=== PATIENT | female | born 1960 | race Caucasian/White ===

== ENCOUNTER 2016-10-20 | Inpatient (IN) | payer OTHER ==
--- NOTE | ~2016-10-20 | HP ---
Unit #: [id number] #: [id number] Patient: BHARATH LEIGH [id number] [place] [address] [id number] MR#: [id number] NAME: BHARATH LEIGH ROOM: P258 Age: 55 Sex: F Admission Date: 10/20/2016 : 1960 Attending Physician: Ole Carrasco M.D. Admitting Physician: Ole Carrasco M.D. Primary Care Physician: Primary Care Physician No HISTORY AND PHYSICAL HISTORY OF PRESENT ILLNESS Bharath is a 55 year old admitted to 2 [facility] with depression and verbalizing wanting to hurt herself. PAST MEDICAL HISTORY 1. Hyperlipidemia. 2. Seizure disorder. 3. COPD. PAST SURGICAL HISTORY 1. Appendectomy. 2. Breast augmentation. 3. Tubal ligation. 4. Hysterectomy. 5. Bilateral carpal tunnel release. ALLERGIES Penicillin. SOCIAL HISTORY Smokes 1 pack per day. Denies alcohol and illicit drug use. FAMILY HISTORY Medically noncontributory. REVIEW OF SYSTEMS CONSTITUTIONAL: No fever or chills. HEENT: Denies any sore throat, ear pain or runny nose. CARDIOVASCULAR: Denies chest pain, irregular heart rhythm or palpitations. CHEST: Denies shortness of breath or cough. No hemoptysis. GASTROINTESTINAL: Denies nausea, vomiting, diarrhea or chronic constipation. ENDOCRINE: Denies history of increased thirst or urination. No recent significant weight loss or gain. GENITOURINARY: Denies dysuria, frequency, or hematuria. SKIN: Denies any rashes. HEMATOLOGIC: Denies history of increased bleeding or bruising. MUSCULOSKELETAL: Denies any hot, swollen joints. No generalized muscle pain. NEUROLOGIC: Denies problems with vision or speech. No frequent, severe headaches. No numbness, tingling or weakness in any extremities. Denies loss of bladder or bowel control. Unit #: [id number] #: [id number] Patient: BHARATH LEIGH CURRENT MEDICATIONS 1. Remeron 30 mg q.h.s. 2. Zocor 20 mg q.h.s. 3. Zonegran 100 mg q.h.s. 4. Milk of Magnesia p.r.n. 5. Maalox p.r.n. 6. Tylenol p.r.n. 7. Alprazolam 2 mg t.i.d. p.r.n. 8. Nicotine patch 14 mg daily. 9. Protonix 40 mg daily. 10. Lortab 7.5 one p.o. b.i.d. p.r.n. PHYSICAL EXAMINATION GENERAL: Alert, appearing much older than her stated age of 55 in no apparent distress. VITAL SIGNS: Blood pressure 100/56, heart rate 80, respirations 16, temperature 98.6. WEIGHT: 124. HEIGHT: 5 feet 2 inches. SKIN: Warm and dry without rash or lesion. HEENT: Normocephalic. TMs not viewed. Oral and nasal passages clear. Conjunctivae clear. PERRLA. EOMs intact. NECK: Supple without lymphadenopathy or thyromegaly. HEART: Regular rate and rhythm without murmur. LUNGS: Clear. ABDOMEN: Soft, nontender. : Not done. EXTREMITIES: No evidence of cyanosis, clubbing or edema. Moves all without focal deficit. NEUROLOGICAL: Grossly within normal limits. Cranial Nerves: II: Visual to are intact. III, IV AND : Extraocular movements are intact. Pupils are equal, round and reactive to light. V: Facial sensation is grossly normal. VII: Facial movements and expression are normal. VIII: Auditory acuity grossly intact. IX, X: Uvula is midline. Phonation is normal. XI: Patient shrugs shoulders and turns head normally. XII: Tongue protrudes in the midline. Sensory and Motor Function: Sensory and motor sensation is grossly normal. Motor: moves all extremities well. Coordination: Gait is normal. Deep Tendon Reflexes: Intact. IMPRESSION Psychiatric admission. RECOMMENDATIONS PSYCHIATRIC: Per psychiatrist. MEDICAL: 1. See no contraindications to participate in facility's activities. 2. Continue Zocor and Zonegran. MEDICAL PROGNOSIS Good. MEDICAL CONDITION Stable. Unit #: [id number] #: [id number] Patient: BHARATH LEIGH Dictated by... Rylie Henning P.A.-C. for Mayank Hein/shobha TD: 10/20/2016 20:36 JOB #: [id number] HISTORY AND PHYSICAL Page 1 of 1 X Rylie Henning HISTORY AND PHYSICAL
--- NOTE | ~2016-10-20 | DS ---
Unit #: [id number] #: [id number] Patient: BHARATH LEIGH [id number] [place] [address] [id number] MR#: [id number] NAME: BHARATH LEIGH ROOM: P258 Age: 55 Sex: F Admission Date: 10/20/2016 : 1960 Discharge Date: 10/22/2016 Attending Physician: Ole Carrasco M.D. Primary Care Physician: Primary Care Physician No DISCHARGE SUMMARY REASON FOR ADMISSION Bharath is a 55-year-old woman who came to the hospital reporting increasing depression, irritability, and some suicidal ideation. She was admitted for stabilization. DIAGNOSTIC STUDIES LABORATORY RESULTS: Please see hospital chart. HOSPITAL COURSE The patient was admitted and placed on suicide precautions. Paroxetine was felt to be ineffective and replaced by Remeron 30 mg at bedtime. Alprazolam was deferred to her primary care physician. She attended some psychotherapy groups and activities and on the date of discharge, she was able to contract for safety. DISCHARGE DIAGNOSES AXIS I: Major depression. AXIS II: No diagnosis. AXIS III: Chronic pain, hypertension, high cholesterol, history of epilepsy. AXIS IV: AXIS V: DISCHARGE INSTRUCTIONS Follow up with primary care physician. DISCHARGE MEDICATIONS Remeron 30 mg at bedtime for depression. Other medications were continued by primary care physician, unchanged. CONDITION AT DISCHARGE Improved. PROGNOSIS Good. DIET AND ACTIVITY Ad ken. Dictated by... Unit #: [id number] #: [id number] Patient: BHARATH LEIGH Ole Carrasco M.D. [facility]/jerardo TD: 11/26/2016 06:06 JOB #: [id number] DISCHARGE SUMMARY Page 1 of 1 X Ole Carrasco MD X DISCHARGE SUMMARY
--- NOTE | ~2016-10-20 | A ---
[facility] Nutrition Therapy DATE: 10/20/16 Patient: BHARATH AGUIRRE LU Physician: VICK Address: [address] [place] [address] Room/Bed: [address], Zip: [place] [address] Admit Date: 10/20/16 Date of : [birth year] Height: 5 2 Weight: [phone] NUTRITIONAL ASSESSMENT: REASON: UNINTENTIONAL WEIGHT LOSS PATIENT ADMITTED FOR DEPRESSION, ANXIETY, AND SI PMH: SEIZURE DISORDER, GERD, HX OF CANCER (APPENDIX?) Anthropometrics: HT: 62", WT: 124#, BMI: 22.7, %IBW: 113 Labs: NO LABS AVAILABLE Meds: REMERON, ALPRAZOLAM, LORTAB Assessment: PATIENT IS A 55 Y/O FEMALE ADMITTED FOR DEPRESSION, ANXIETY, AND SI. PATIENT IS CURRENTLY EMPLOYED, HOMELESS SINCE YESTERDAY, SMOKES DAILY, AND HAS A HX OF AMPHETAMINE AND CANNABIS USE. UPON ADMIT PATIENT STTED A POOR APPETITE, A 50# WEIGHT LOSS X 6 MONTHS, AND SHE HAS NOT BEEN SLEEPING. IT IS NOTED THAT PATIENT LEFT HER NOW EX-BOYFRIEND OF 2 MONTHS D/T HIS CULT LIKE BEHAVIORS AND SHE HAD BECOME VERY ISOLATED. PATIENT'S BMI IS WITHIN A HEALTHY RANGE OF 19-25 AND SHE IS 113% OF HER IBW. PATIENT WAS ADMITTED TO FACILITY TODAY. CURRENT PO INTAKES ARE NOT AVAILABLE ATT. WILL CONTINUE TO FOLLOW PATIENT'S PO INTAKES AND WEIGHT. THERE ARE NO SKIN OR GI ISSUES NOTED ATT. PATIENT IS ON REMERON, WHICH MAY CAUSE AN INCREASED APPETITE. PATIENT IS ON A REGULAR DIET. Dx: UNINTENTIONAL WEIGHT LOSS R/T CURRENT CONDITION, DEPRESSION AEB SELF-REPORTED WEIGHT LOSS AND DECREASED APPETITE, NUTRITIONAL RISK POINT Intervention: REGULAR DIET, MEDS PER MD, PSYCH Monitoring, Evaluation and Goals: 1. ADEQUATE PO INTAKES >50% OF MEALS 2. PREVENT, CORRECT MICRO/MACRO NUTRIENT DEFICIENCIES 3. PREVENT FURTHER WEIGHT LOSS MONITOR: WEIGHTS, LABS, PO/FLUID INTAKES Recommendations: 1. CONTINUE REGULAR DIET TOLERATED. PATIENT DOES HAVE DENTURES. OFFER SNACKS BETWEEN MEALS. IF PATIENT HAS C/O HUNGER PLEASE SEND ORDER FOR LARGE PORTIONS AND RD WILL APPROVE 2. ENCOURAGE ADEQUATE PO AND FLUID INTAKES 3. OBTAIN WEIGHTS ROUTINELY (EVERY 3-4 DAYS) [facility] Nutrition Therapy DATE: 10/20/16 Patient: BHARATH AGUIRRE LU Physician: VICK Address: [address] [place] [address] Room/Bed: [facility], Zip: [place] [address] Admit Date: 10/20/16 Date of : [birth year] Height: 5 2 Weight: [id number] 4. IF PO INTAKES ARE BELOW 50% OF MEALS PLEASE ORDER ENSURE BID TO PROMOTE ADEQUATE KCAL AND PROTEIN INTAKES AND PREVENT FURTHER WEIGHT LOSS RD TO F/U PER PROTOCOL AND PRN R/T PATIENT MILDLY COMPROMISED Respectfully, BRENT PALENCIA, RD, LD [facility] cc: client file
--- NOTE | ~2016-10-20 | PA ---
Unit #: [id number] #: [id number] Patient: BHARATH LEIGH [id number] [place] [address] [id number] MR#: [id number] NAME: BHARATH LEIGH ROOM: P258 Age: 55 Sex: F Admission Date: 10/20/2016 : 1960 Date of Assessment: 10/21/2016 Attending Physician: Ole Carrasco M.D. Admitting Physician: Ole Carrasco M.D. Primary Care Physician: Primary Care Physician No PSYCHIATRIC ASSESSMENT DATE OF SERVICE 10/21/2016. INFORMANT The patient considered reliable. HISTORY OF PRESENT ILLNESS This patient is a 55-year-old female, who was admitted to the hospital for complaints of depression. The patient says "I snapped." She has a long history of depression and anxiety. She is currently taking Paxil and Xanax per her primary care physician. She reports depression since the early 30s. This is her first inpatient hospitalization. The patient says she left her trip boyfriend. She feels very stressed out. PAST PSYCHIATRIC HISTORY The patient reports a long history of depression and anxiety since her early 30s. This is her first inpatient hospitalization. FAMILY PSYCHIATRIC HISTORY The patient reports no family history of mental illness. SOCIAL HISTORY The patient is with one child. 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 She has a bachelor's degree. HOME MEDICATIONS Paxil 40 mg one p.o. daily and Xanax 2 mg one p.o. t.i.d. ALLERGIES No known medical allergies. SUBSTANCE ABUSE HISTORY This patient denies any alcohol or drug use. MENTAL STATUS EXAMINATION This patient is a 55-year-old female, who appears her stated age. She is alert and oriented x3. She is cognitively intact in all spheres. Thought processes are logical and reasonable. She denies any SI and contracts for safety. Her fund of knowledge and abstractions are intact. Insight and judgment are fair. Concentration and memory are intact. The patient's mood is dysphoric with depressive symptoms with decreased sleep, decreased appetite, and crying episodes. Unit #: [id number] #: [id number] Patient: BHARATH LEIGH ASSETS AND LIABILITIES This patient's assets includes employment and the patient came to the hospital voluntarily for treatment. Liabilities include multiple stressors at this time and history of poor relationships with significant others. ADMITTING DIAGNOSES AXIS I: Major depressive disorder, recurrent, F33.1. AXIS II: Deferred. AXIS III: Unremarkable. AXIS IV: AXIS V: PSYCHIATRIC TREATMENT PLAN This patient was admitted to the hospital for medication management and safety and stabilization. She will attend groups and participate in unit activities. She will continue the Paxil and Xanax per her primary care physician. H and P and laboratory studies will be ordered and reviewed. Treatment goals include resolution of her depressive symptoms with improved coping skills. DISCHARGE PLANNING The patient will be encouraged to follow up with a psychiatrist in the community and a therapist. ESTIMATED LENGTH OF STAY 5 days. Dictated by... Carrie Diaz A.P.R.N. for Ole Carrasco M.D. [facility]/modl TD: 10/26/2016 06:17 JOB #: [id number] PSYCHIATRIC ASSESSMENT Page 1 of 1 X Carrie Diaz PSYCHIATRIC ASSESSMENT
[2016-10-21 09:50] LABS: BASOPHIL% 0.3 % (0-2.5); EOSINOPHIL# 0.2 X10e3 (0-0.7); EOSINOPHIL% 3.4 % (0.0-7.0); HEMOGLOBIN 12.6 gm/dL (12.0-16.0); LYMPHOCYTE% 50.7 % (17.0-45.0); MEAN CELL VOLUME 96.9 FL (83-96); MEAN CORPUSCULAR HEMOGLOBIN 31.4 PG (28-34); MEAN CORPUSCULAR HGB CONC 32.4 g/dL (30-36); MEAN PLATELET VOLUME 7.8 FL (6.5-11.5); MONOCYTE# 0.4 X10e3 (0-1.0); MONOCYTE% 6.6 % (3.0-12.0); NEUTROPHIL# 2.3 X10e3 (1.5-7.1); PLATELET COUNT 177 X10e3 (140-420); RED BLOOD COUNT 4.03 X10e (3.90-5.30); RED CELL DISTRIBUTION WIDTH 14.6 % (11.0-15.5); WHITE BLOOD COUNT 5.9 X10e3 (4.0-10.5)
[2016-10-21 09:51] LABS: DIFF IND YES
[2016-10-21 09:57] LABS: ALBUMIN SERUM 3.7 g/dL (3.5-5.0); BILIRUBIN,TOTAL 0.4 mg/dL (0.2-2.0); BUN/CREATININE RATIO 15.71; CALCIUM SERUM 9.2 mg/dL (8.4-10.2); CREATININE SERUM 0.7 mg/dL (0.6-1.4); GLOM FILT RATE Estimated 98.9 mL/min (>60); POTASSIUM 3.9 mmol/L (3.5-5.1); PROTEIN TOTAL SERUM 6.1 g/dL (6.0-8.3)
[2016-10-21 11:39] LABS: PLATELET ESTIMATE NORMAL (NORMAL); RBC NORMAL YES
== END 2016-10-22 13:10 | disposition home or self-care (01) | DRG 885 ==
LOC: P2S 04:19 → P2L 04:19
PROVIDERS: Psychiatry & Neurology Psychiatry
DX: F33.1 Major depressive disorder, recurrent, moderate (principal); G40.909 Epilepsy, unspecified, not intractable, without status epilepticus; J44.9 Chronic obstructive pulmonary disease, unspecified; E78.5 Hyperlipidemia, unspecified; Z98.51 Tubal ligation status; Z90.710 Acquired absence of both cervix and uterus; Z88.0 Allergy status to penicillin; F17.210 Nicotine dependence, cigarettes, uncomplicated
CPT/HCPCS: 80053; 85025